=== PATIENT | male | born 1985 | race Caucasian/White ===

== ENCOUNTER 2018-05-01 20:21 | Emergency (ER) | payer SELFPAY ==
[~2018-05-01] VITALS: Ht 182.9 cm; Wt 88.6 kg
[2018-05-01] MEDS ORDERED: IBUPROFEN 800MG TABLET PO ONE (22:45)
[2018-05-01] MEDS ORDERED: TETANUS, DIPHTHERIA, PERTUSSIS VAC/PF 0.5ML (>7YR OLD) IM ONE (22:45)
[2018-05-01] MEDS ORDERED: BACITRACIN ZINC OINT UDPKT TOP ONE (22:45)
[2018-05-02 00:38] VITALS: BP 125/68
== END 2018-05-02 00:39 | disposition home or self-care (01) ==
LOC: ER 20:21
DX: S61.210A Laceration without foreign body of right index finger without damage to nail, initial encounter (principal); W26.0XXA Contact with knife, initial encounter; Y93.G3 Activity, cooking and baking; Y92.090 Kitchen in other non-institutional residence as the place of occurrence of the external cause
CPT/HCPCS: 73140; 90471; 90715; 99284; Z7610